=== PATIENT | male | born 1985 | race Caucasian/White ===

== ENCOUNTER 2017-09-02 12:40 | Inpatient (IN) | payer BC, OTHER ==
[~2017-09-02] VITALS: Ht 190.5 cm; Wt 78.0 kg
--- NOTE | 2017-09-03 00:26 | NUR ---
PRE-ADMISSION ASSESSMENT Pt was seen in intake office. Pt is currently intoxicated and not experiencing any s/s of withdrawal. Pt is disheveled and has unkempt appearance. Pt is slurring his words and can not maintain eye contact. Pt has a sterady gait. V/S: P:75, RR:16, SPO2:97, and BP:135/79. Pt is in acceptable condition for admittance to the unit.
[2017-09-03] MEDS ORDERED: MAGNESIUM HYDROXIDE 30 ML LIQUID UDC PO PRN (00:30)
[2017-09-03] MEDS ORDERED: ONDANSETRON 4 MG/2 ML VIAL IM PRN (00:30)
[2017-09-03] MEDS ORDERED: MAG HYDROX/AL HYDROX/SIMETH 30 ML LIQUID UDC PO PRN (00:30)
[2017-09-03] MEDS ORDERED: LOPERAMIDE HCL 2 MG CAPSULE PO PRN ×2 (00:30)
[2017-09-03] MEDS ORDERED: MIRALAX 17 GM POWD.PACK PO PRN (00:30)
[2017-09-03] MEDS ORDERED: ONDANSETRON ODT 4 MG TAB.RAPDIS SL PRN (00:30)
[2017-09-03] MEDS ORDERED: DICYCLOMINE HCL 20 MG TABLET PO PRN (00:30)
[2017-09-03] MEDS ORDERED: diphenhydrAMINE 50 MG CAPSULE PO PRN (00:30)
[2017-09-03 01:00] LABS: BASOPHILS % (AUTO) 0.4 % (0.0-2.0); EOSINOPHILS # (AUTO) 0.3 K/uL (0.0-0.7); EOSINOPHILS % (AUTO) 3.8 % (0.0-7.0); HEMATOCRIT 44.2 % (36.7-47.1); HEMOGLOBIN 15.2 g/dL (12.5-16.3); LYMPHOCYTES # (AUTO) 1.2 K/uL (20.0-40.0); LYMPHOCYTES % (AUTO) 13.6 % (20.5-51.5); MEAN CORPUSCULAR HEMOGLOBIN 32.8 uug (23.8-33.4); MEAN CORPUSCULAR HGB CONC 35 g/dL (32.5-36.3); MEAN CORPUSCULAR VOLUME 95.2 fL (73.0-96.2); MONOCYTES % (AUTO) 11.8 % (0.0-11.0); NEUTROPHILS % (AUTO) 70.4 % (38.5-71.5); PLATELET COUNT (AUTO) 274 K/uL (152-348); RED BLOOD CELL COUNT(AUTO) 4.64 MIL/uL (4.06-5.63); WHITE BLOOD COUNT (AUTO) 8.6 K/uL (3.6-10.2)
[2017-09-03 01:04] LABS: *AMPHETAMINE, URINE POSITIVE (NEGATIVE); *BARBITURATE, URINE NEGATIVE (NEGATIVE); *CANNABINOID, URINE POSITIVE (NEGATIVE); *COCCAINE, URINE POSITIVE (NEGATIVE); *OPIATE, URINE POSITIVE (NEGATIVE); *PHENCYCLIDINE SCREEN,URINE NEGATIVE (NEGATIVE)
[2017-09-03 01:08] LABS: ETHANOL < 3 MG/DL (0-0)
[2017-09-03 01:15] LABS: ALANINE AMINOTRANSFERASE 64 U/L (16-63); ALKALINE PHOSPHATASE 99 U/L (50-136); AMYLASE 34 U/L (25-115); ASPARTATE AMINOTRANSFERASE 102 U/L (15-37); BILIRUBIN,TOTAL 0.5 mg/dL (0.2-1.0); CARBON DIOXIDE 28 mmol/L (21-32); CHLORIDE 101 mmol/L (98-107); CREATININE 1.1 mg/dL (0.6-1.3); GLUCOSE 131 mg/dL (74-106); LIPASE 108 U/L (73-393); MAGNESIUM 2.1 mg/dL (1.8-2.4); POTASSIUM 4.1 mmol/L (3.5-5.1); TOTAL PROTEIN, SERUM 7.8 g/dL (6.4-8.2); UREA NITROGEN, BLOOD 23 mg/dL (7-18)
--- NOTE | 2017-09-03 01:22 | NUR ---
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 Pt is intoxicated and currently not experiencing any s/s of withdrawal. Pt has an unkempt and disheveled appearance. Pt has slurred speech, was lethargic, and avoidant eye contact. Pt is A/O to person, place, time, and purpose. Pt, however, was a poor historian. Pt states that withdrawal from these substance has typically included delirium, body aches, sweats, chills, and irritability. Pt denies any h/o withdrawal induced seizures. Pt states current substance use as follows: 1. Heroin: 4g daily for the past 2 wks. Pts last use was 2g on 09/02/17 @ 1630. Pt first began using when he was 27 y/o. 2. Cocaine: 1g daily for the past 5-6 wks. Pts last use was 1g on 09/02/17 @ 1630. Pt first began using when he was 29 y/o. 3. Methamphetamines: 1-2g daily for the past 5-6 wks. Pts last use was 2g on 08/31/17. Pt first began using when he was 29 y/o. Pt states they are seeking treatment today because I am sick and tired of doing things the same way. Its just not working any more. Pt has been admitted to several treatment facilities in the past. The most recent in March of 2017, was at [facility] in [place], which was a 30 day residential treatment facility. Pt states once he left treatment he stayed sober for a little while, but then went right back to using. Pt states that this time will be different because I have more experience and I am more open to treatment. Pt states he would like to continue treatment at a residential facility. Pt states that he has a good support system of friends including an AA sponsor. V/S: T:98.2, P:82, RR:18, SPO2:99, BP:129/81. Pts respirations are unlabored and even. Pts skin is intact, NKA, and he follows a regular diet @ homes. Pt was unable to answer clearly if he was a smoker. Pt doesnt have a PCP and he couldnt state if he had a psychiatrist. Pt did states that he was on Lamictal for depression. Pt states that in the past he had thoughts of suicide, but never a real plan. Pt denies any S/I and H/I currently. Pt was unable to be educated on plan of care and unit rules. Call light was within in reach. Pt will continue to be monitored and needs met.
[2017-09-03 01:48] LABS: THYROID STIMULATING HORMONE 0.896 mIU/mL (0.358-3.740)
[2017-09-03] MEDS ORDERED: LAMO200T2 GT (03:04)
[2017-09-03 05:00] VITALS: BP 115/80
--- NOTE | 2017-09-03 05:00 | NUR ---
COWS ASSESSMENT COWS 12. Pt is presenting w/ chills, body aches, and anxiety. Will continue to monitor pt.
[2017-09-03] MEDS: LORAZEPAM 1 MG TABLET PO PRN ×2 (05:21→15:25)
[2017-09-03] MEDS: BUPRENORPHINE HCL 2 MG TAB.SUBL SL PRN ×3 (05:21→13:42)
--- NOTE | 2017-09-03 05:21 | NUR ---
PRN SUBUTEX AND ATIVAN Subutex 4mg and Ativan 2gm given for anxiety, sweats, and chills. COWS 12. Will reassess in 1 hr.
--- NOTE | 2017-09-03 06:21 | NUR ---
PRN ATIVAN AND SUBUTEX REASSESSMENT Pt is in bed w/ his eyes closed. Pt's respirations are unlabored and even.
--- NOTE | 2017-09-03 07:30 | NUR ---
END OF SHIFT NOTE Endorsed pt to oncoming nurse. Pt is a 32 y/o male A/O to person, place, time, and purpose. Pt was admitted for medically supervised withdrawal from Heroin. Pt was intoxicated upon admission and was not experiencing any s/s of withdrawal. Pt presented w/ anxiety, body aches, and chills @ 0500. PRN Ativan 2MG and Subutex 4mg was given for COWS 12, noted effective. Pts fluid intake was 300ml and he voided 1 time. Pt slept for 3 hrs. Last COWS 12 @ 0500. Call light is within reach. Pt will continue to be monitored and needs met.
--- NOTE | 2017-09-03 07:45 | NUR ---
START OF SHIFT Rcvd endorse from ongoing nurse, client is in bed, sounds asleep, easy to arouse, RR 16, even, non-labored. Client's room noted with strong body odor smell, several snack bags open, and scattered on bedside table and floor. Primary nurse tidy up room. Last COWS 12, PRN Subutex 4mg SL and Ativan 2mg PO for anxiety. Client slept 3 hrs. [place] precautions rendered. [place] light within reach.
[2017-09-03 08:25] VITALS: BP 100/66
[2017-09-03] MEDS: MULTIVITAMINS,THERAPEUTIC TABLET PO SCH (09:00)
--- NOTE | 2017-09-03 09:35 | NUR ---
Client reports taking Lamictal 150mg PO for his bipolar depression, but has not take the medication for the past two days. Educate client on risk if he stop taking Lamictal without talking to his physician, additional education needed.
[2017-09-03] MEDS: METHOCARBAMOL 750 MG TABLET PO PRN (09:37)
--- NOTE | 2017-09-03 09:37 | NUR ---
COWS 17 & PRN's Client presents with anxiety, agitation, inability to stay still, restless, fidgety, loud speech, flight of ideas, inability to concentrate, tremors, nausea, abdominal spasms, generalized body aches, and myalgia on lower extremities. He appears disheveled, odorous, scattered scabs on face, lower extremities, client is continuously picking at skin, encourage client to not pick at skin, he said, "I'm not touching my skin." Encouragement needed. PRN Subutex 4mg SL, Bentyl 20mg PO and Robaxin 750mg PO administered. Call light within reach.
--- NOTE | 2017-09-03 10:07 | NUR ---
Reassess PRN Subutex 4mg, COWS 12, client reports not feeling any difference, he stated, "My whole body is aching, I am sweating, I feel hot and cold all the time, stomach cramps, nausea, just very achy." He continuos to present with anxiety, restlessness, and agitation. Client declines any PRN medication to help him manage withdrawal symptoms at this time. Call light within reach.
--- NOTE | 2017-09-03 10:37 | NUR ---
Reassess Bentyl 20mg and Robaxin 750mg, client is in bed, sounds asleep, easy to arouse, RR 16, even, non-labored. Call light within reach.
[2017-09-03 12:24] VITALS: BP 117/64
[2017-09-03] MEDS ORDERED: 5 DAY TAPER BUPRENORPHINE -SERENITY PROTOCOL SL PRN (13:30)
[2017-09-03] MEDS: ACETAMINOPHEN 325 MG TABLET PO PRN (13:42)
[2017-09-03] MEDS: IBUPROFEN 600 MG TABLET PO PRN (13:42)
[2017-09-03] MEDS: HYDROXYZINE PAMOATE 25 MG CAPSULE PO PRN (13:42)
--- NOTE | 2017-09-03 13:42 | NUR ---
COWS 19 & PRN's Client continues to present with anxiety, agitation, inability to stay still, restless, fidgety, flight of ideas, emotional volatility, inability to concentrate, tremors, nausea, abdominal spasms, generalized body aches, and myalgia on lower extremities /10 and headache. PRN Subutex 4mg SL, Vistaril 25mg PO for anxiety, Tylenol 650mg PO and Motrin 600mg PO administered. Call light within reach.
--- NOTE | 2017-09-03 13:44 | NUR ---
Nursing note while waiting for Subutex to dissolve, client started stretching and moving face from side to side, remote mortgage underwriter notified client that he has to sit and stay still until medication has been dissolved, client was reminiscing of his late best friend, he got up to show a tattoo that he got in memory of his friend and a Subutex pill dropped from his t-shirt, client quickly machine operator hop picker the pill and put it under his tongue and insisted that he has no idea what happened. Encourage client to sit still until medication has been administered. CN and MARKETING PROPOSAL COORDINATOR supervisor insecticide notified. Call light within reach.
--- NOTE | 2017-09-03 14:12 | NUR ---
Reassess PRN Subutex 4mg SL, COWS 12, client continues to presents with anxiety, agitation, generalized body aches, emotional volatility, inability to concentrate, tremors, nausea, and abdominal spasms. Call light within reach.
[2017-09-03] MEDS ORDERED: TRAZODONE 100 MG TABLET PO PRN (16:00)
[2017-09-03 16:36] VITALS: BP 125/65
[2017-09-03] MEDS: BUPRENORPHINE HCL 2 MG TAB.SUBL SL SCH ×2 (16:38→21:00)
[2017-09-03] MEDS ORDERED: LAMO100T2 PO (17:33)
--- NOTE | 2017-09-03 17:59 | NUR ---
OT Zyprexa Zydis 5 mg PO given: Patient noted with episodes of visual hallucinations. He reports seeing rodents in the room and seeing the doorknob coming to life. Patient was redirected back to reality. No evidence of rodents were noted in the room after staff checking. Notified Dr. Dunham with orders for OT Zyprexa Zydis 5 mg PO x 1 now. Orders noted and carried out. Zyprexa Zydis 5 mg PO was given for visual hallucinations m/b seeing the doorknob coming to life and seeing rodents in the room. Will monitor for effectiveness.
[2017-09-03] MEDS ORDERED: OLANZAPINE ZYDIS 5 MG TAB.RAPDIS PO ONE (18:00)
--- NOTE | 2017-09-03 18:59 | NUR ---
Reassess OT Zyprexa Zydis 5 mg, client is in bed with eyes closed, RR 16, even, non-labored. Call light within reach
--- NOTE | 2017-09-03 19:28 | NUR ---
END OF SHIFT Endorse client to incoming nurse, client is is room, laying in bed, eyes closed, RR 16, even, non-labored. Last COWS 19 @ 1600. PRN administered and noted per protocol. Adequate PO fluid intake. Consumes 50-75% of meals. call light within reach.
--- NOTE | 2017-09-03 19:29 | NUR ---
Start of shift note Received report from day shift nurse. Pt is a 32 yo male, A+Ox4, presenting to [facility] for Opiate/Meth/cocaine withdrawal. Pt noted to be fatigued and agitated. Pt has HX of Depression, delirium, and bipolar which will be monitored during shift. Pt is on 5 day Subutex taper, tolerated well. Respirations even and unlabored. Will continue to monitor.
[2017-09-03 20:20] VITALS: BP 110/64
--- NOTE | 2017-09-03 20:20 | NUR ---
COWS Assessment COWS: 7. Pt noted with fatigue, chills, enlarged pupils, stuffy nose, fine tremors, yawning and anxiety. Respirations even and unlabored. Will continue to monitor.
[2017-09-03] MEDS: LAMOTRIGINE 100 MG TABLET PO SCH (21:00)
--- NOTE | 2017-09-03 21:59 | NUR ---
Held medications 2100 dose of Lamictal and Subutex held for sleep. Respirations even and unlabored. Will continue to monitor.
[2017-09-04] MEDS ORDERED: LORAZEPAM 1 MG TABLET PO PRN (00:45)
--- NOTE | 2017-09-04 00:50 | NUR ---
V/S refused and COWS assessment deferred for sleep. Respirations even and unlabored. Will continue to monitor.
--- NOTE | 2017-09-04 04:54 | NUR ---
V/S refused and COWS assessment deferred for sleep. Respirations even and unlabored. Will continue to monitor.
--- NOTE | 2017-09-04 06:56 | NUR ---
End of shift note Pt was continuously noted with fatigue, agitation, and anxiety. Pt remained in room for majority of shift except to get food from kitchen. Pt remained cooperative and compliant with all aspects of treatment. Pt was not given any PRN medications during shift. Pts 2100 scheduled medications were held due to sleep. Pt is on 5 day Subutex taper, tolerated well. Pt slept for a total of 10 HRS. Last COWS: 7 @2000. Respirations even and unlabored. Will endorse to day shift nurse.
--- NOTE | 2017-09-04 07:30 | NUR ---
Start of Shift Pt. is 32 y/o male admitted for the medically managed withdrawal from Opiates, Cocaine, and Methamphetamine. Pt. was placed on a 5 day Subutex taper to manage withdrawal symptoms of which he is on his second day. Endorse from previous shift pt. continually presented with fatigue, agitation, and anxiety. Pt. slept during the majority of the previous shift, sleeping a total of 10 hours. Received pt. in room. Pt. awake sitting up in bed. Pt. states I feel like shit, I just want to go back to sleep. Pt. reports feeling chills and body aches. Pt. presents with fine hand tremors. Encouraged pt. to verbalize concerns and emotions. Last COWs [address] Will continue to monitor pt.s behavior for safety.
[2017-09-04 08:00] VITALS: BP 110/71
--- NOTE | 2017-09-04 08:00 | NUR ---
COW's Assessment COW's 10. Pt. in room laying on his bed with eyes open. Pt. presents with fine hand tremors, irritability, and restlessness. Pt. reports body aches, chills, anxiety and nasal congestion. Pt. compliant with medication regiment and taper medications. Pt. given Subutex at this time. Pt. offered PRN's but refused all stating "Subutex is enough, I don't want anything else." Will continue to monitor pt.'s behavior for safety.
[2017-09-04] MEDS: MULTIVITAMINS,THERAPEUTIC TABLET PO SCH (08:04)
[2017-09-04] MEDS: BUPRENORPHINE HCL 2 MG TAB.SUBL SL SCH ×3 (08:06→21:11)
[2017-09-04 08:12] LABS: BILIRUBIN,TOTAL 0.2 mg/dL (0.2-1.0); CREATININE 0.9 mg/dL (0.6-1.3); POTASSIUM 4.5 mmol/L (3.5-5.1); TOTAL PROTEIN, SERUM 6.5 g/dL (6.4-8.2)
[2017-09-04] MEDS ORDERED: TUBERCULIN,PURIF.PROT.DERIV. 5 TU/0.1 ML TEST ID ONE (09:00)
--- NOTE | 2017-09-04 12:00 | NUR ---
COW's Assessment COW's 9. Pt. sitting on the edge of his bed. Pt. still presents with fine hand tremors, irritability, and restlessness. Pt. reports body aches, chills, anxiety and nasal congestion. Pt. states "I just feel really irritable but I'm trying to control it." Pt. set to be given his next Subutex dose at 1500. Pt. still refusing PRN's. Will continue to monitor pt.'s behavior for safety.
[2017-09-04 12:13] VITALS: BP 110/59
[2017-09-04 15:07] LABS: HEPATITIS B SURFACE AG Negative (Negative)
[2017-09-04 16:00] VITALS: BP 130/79
--- NOTE | 2017-09-04 16:00 | NUR ---
COW's Assessment COW's 9. standing in his room watching television. Pt. still presents with fine hand tremors, irritability, and restlessness. Pt. reports body aches, chills, anxiety and nasal congestion. Pt. compliant with his taper. Will continue to monitor pt.'s behavior for safety.
--- NOTE | 2017-09-04 19:19 | NUR ---
End of Shift Pt. is 32 y/o male admitted for the medically managed withdrawal from Opiates, Cocaine, and Methamphetamine. Pt. was placed on a 5 day Subutex taper to manage withdrawal symptoms of which he is on his second day. Pt. compliant with his medication regiment. Pt. continually presented with fatigue, agitation, anxiety and continually reported body aches and chills. Pt. visible on the unit throughout shift and attended groups and activities. Encouraged pt. to verbalize concerns and emotions. Last COWs 9 at 1600. No PRNs given during shift. Safety measures in place. Will endorse pt.s behavior to oncoming shift.
--- NOTE | 2017-09-04 19:30 | NUR ---
Start of Shift Pt admitted 09/03/17 for medically managed withdrawal from Heroin, Cocaine and Methamphetamine salts on day 2 of a 5 day Subutex taper. Pt presenting with PPH of Depression, Bipolar, with Hx of withdrawal induce delirium. Pt in room, unshaven, with c/o open sores on torso and arms. CN consulted, determined to be "pick anna" pt to shower and use a moisturizer. Pt appears manic, euphoric, hyperactive with racing thoughts, reporting periods of visual hallucinations which pt refers to as "cognitive distortions". CN notified, Ativan 2mg PO to be given. Will monitor for duration of shift, promptly attending to all s/sx's w/d or distress.
[2017-09-04 20:00] VITALS: BP 130/64
--- NOTE | 2017-09-04 20:00 | NUR ---
COWS Score COWS of 12 at 2000 hours, aeb r/o sweats, restlessness, mild joint and B/A's, nasal congestion, hand tremors, yawning, irritability, intermittent piloerection, r/o "cognitive disturbances" which are described as periodic visual hallucinations.
[2017-09-04] MEDS: LAMOTRIGINE 100 MG TABLET PO SCH (21:10)
--- NOTE | 2017-09-04 21:11 | NUR ---
PRN Med Ativan 2mg PO given for anxiety, agitation, psychosis (visual H/A), Will continue to monitor, reassessing in 1 hour.
--- NOTE | 2017-09-04 22:11 | NUR ---
PRN Reassessment Ativan 2mg PO given 1 hour prior for anxiety/agitation, psychosis, r/o periodic visual hallucinations. At present pt reports decrease in anxiety/agitaion, no visaul disturbances present. Med effective. Will continue to monitor and promptly attend to all s/sx's distress or w/d.
[2017-09-05] VITALS: BP 115/72
--- NOTE | 2017-09-05 | NUR ---
Midnight Rounds VS's obtained, HR Bradycardic at 45, pattern seen of bradycardia during sleep. CN notified and aware. COWS deferred r/t pt somnalence. Will continue to monitor and promptly attend to all pt s/sx's w/d or distress
[2017-09-05 04:00] VITALS: BP 106/62
--- NOTE | 2017-09-05 04:00 | NUR ---
0400 Rounds VS's obtained, HR Bradycardic at 47, pattern seen of bradycardia during sleep. CN notified and aware. COWS deferred r/t pt somnalence. Will continue to monitor and promptly attend to all pt s/sx's w/d or distress
--- NOTE | 2017-09-05 07:04 | NUR ---
End of Shift Endorsement given to day nurse. Pt admitted 09/03/17 for medically managed withdrawal from Heroin, Cocaine and Methamphetamine salts on day 2 of a 5 day Subutex taper. Pt presenting with PPH of Depression, Bipolar, with Hx of withdrawal induce delirium. Pt appears manic, euphoric, hyperactive with racing thoughts. Pt received PRN Ativan 2mg due to c/o intermitant visual hallucinations, anxiety, agitation. Pt slept for 6 hours after being found praying by bed, on knees. 1855 mls intake with 5 voids and no BM's for shift. Pt bradycardic for midnight and 0400 rounds, with 45 and 47 being HR. Pt arousable both times with all other VS's stable. CN notified and aware.
[2017-09-05 08:00] VITALS: BP 120/69
[2017-09-05] MEDS: MULTIVITAMINS,THERAPEUTIC TABLET PO SCH (08:16)
--- NOTE | 2017-09-05 08:18 | NUR ---
START OF SHIFT: Received Pt A/O X 4. He presents with irritable mood and congruent affect. He reports some intermittent chills and sweats.Subutex taper in progress to manage s/s of w/d. COWS 12 He reports body aches,irritability and restlessness. Encouraged group attendance to improve coping skills and prevent relapse. Encouraged increased fluids to assist in facilitating detox process. Will continue to monitor and manage s/s of w/d.
[2017-09-05] MEDS ORDERED: BUPRENORPHINE HCL 2 MG TAB.SUBL SL SCH (09:00)
[2017-09-05] MEDS: ESCITALOPRAM OXALATE 10 MG TABLET PO SCH (11:07)
[2017-09-05 12:00] VITALS: BP 131/82
[2017-09-05] MEDS ORDERED: NEOMY/BACITRAC/POLYMI OINT 28.35 GM TUBE TOP SCH (12:15)
[2017-09-05] MEDS: BUPRENORPHINE HCL 2 MG TAB.SUBL SL SCH ×2 (15:23→20:08)
[2017-09-05 16:00] VITALS: BP 120/65
--- NOTE | 2017-09-05 18:57 | NUR ---
END OF SHIFT: Pt continues on Subutex taper to manage s/s of w/d which include intermittent chills and sweats. He also reports body aches and anxiety. Last COWS 8. He interacted with peers and attended groups.He is compliant with treatment plan. Will pass shift report to oncoming night nurse.
--- NOTE | 2017-09-05 19:30 | NUR ---
Start of Shift Endorsement received from day nurse. 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 Hx of several treatment centers, last in Mar 2017, with hx of delirium, on day 3 of a 5 day Subutex taper. Pt presents has sad, depressed, anxious, claims he woke up from a nap and doesn't feel right. Pt says "wall seems to be doing something funny". Pt to be medicated with Seroquel, Subutex, Lamictal, monitored and reevaluated in 1 hour. Will continue to monitor for any s/sx's distress or w/d and promptly attend.
[2017-09-05 20:00] VITALS: BP 134/92
--- NOTE | 2017-09-05 20:00 | NUR ---
2000 Rounds VS's stable, COWS 11, aeb fine tremors, diaphoresis, anxiety and agitation, visual disturbances/hallucinations
[2017-09-05] MEDS: LAMOTRIGINE 100 MG TABLET PO SCH (20:07)
[2017-09-05] MEDS: QUETIAPINE FUMARATE 25 MG TABLET PO PRN (20:08)
--- NOTE | 2017-09-05 20:08 | NUR ---
PRN Med Seroquel 25mg PO given with scheduled Subutex and Lamictal for anxiety, agitation, and psychosis (visual disturbances). Will continue to monitor and reassess in 1 hour
[2017-09-05] MEDS: NEOMY/BACITRAC/POLYMI OINT 28.35 GM TUBE TOP SCH (21:00)
--- NOTE | 2017-09-05 21:08 | NUR ---
PRN Reassessment Seroquel 25mg PO given 1 hour prior with scheduled Lamictal and Subutex for anxiety, agitation and psychosis. At present, pt is reporting feeling "much better". Med effective.
[2017-09-06] VITALS: BP 110/61
--- NOTE | 2017-09-06 | NUR ---
Midnight Rounds VS's obtained and stable, COWS deferred r/t pt somnalance. Will continue to monitor and promptly attend to all s/sx's of w/d or distress.
[2017-09-06 04:00] VITALS: BP 114/60
--- NOTE | 2017-09-06 04:00 | NUR ---
0400 Rounds VS's obtained and stable, COWS deferred r/t pt somnalance. Will continue to monitor and promptly attend to all s/sx's of w/d or distress.
--- NOTE | 2017-09-06 07:37 | NUR ---
End of Shift Endorsement given to day nurse. 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 Hx of several treatment centers, last in Mar 2017, with hx of delirium, starting day 4 of a 5 day Subutex taper. Pt with flat affect, sad and depressed in eveing with visual BLANCAS. Pt responded to Ps[facility] meds with Seroquel in evening, visual disturbances diminished and pt normalized. Pt interactive after with appetite. Seroquel was sole PRN, pt first requesting, then refusing Robaxin and Trazodone, and refusing ABX ointment, and pt sleeping for 9 hours with 1.5 L intake, and 4 voids. Last CIWA 11 at 2000 hours.
--- NOTE | 2017-09-06 07:50 | NUR ---
START OF SHIFT Pt is a 32 y/o M admitted on 09/03/17 for medically supervised opiate, meth, and cocaine withdrawal. Pt is placed on a 5 day subutex taper, today being the 4th day and tolerating well. Pt has a flat affect, and a depressive mood, poor eye contact. Pt presents anxiety, restlessness, generalized body aches and hot flashes. Pt had visual disturbances last night and was given seroquel per night nurse report. Encourage pt to verbalized feelings and eduated pt about s/s to report. Bed is on the lowest position with side rails x2 up and call light within reach. Safety measures in place. Will give endorsement to machine technician nurse.
[2017-09-06 08:00] VITALS: BP 99/65
--- NOTE | 2017-09-06 08:20 | NUR ---
COWS ASSESSMENT 15 Received pt A/Ox4, respirations even and unlabored. Pt has a flat affect, a depressive mood, and poor eye contact. Pt presents pupils larger than normal, anxiety, agitation, sweating, restlessness, piloerection of the skin, runny nose and congestion, yawning, stomach cramps, generalized body aches, tremors, dysphoria, anhedonia and hot flashes. Encourage pt to verbalized feelings and eduated pt about s/s to report. Scheduled meds given. Encouraged pt to use non-pharmalogical methods for symptoms. Will continue to monitor.
[2017-09-06] MEDS: MULTIVITAMINS,THERAPEUTIC TABLET PO SCH (08:42)
[2017-09-06] MEDS: ESCITALOPRAM OXALATE 10 MG TABLET PO SCH (08:42)
[2017-09-06] MEDS: BUPRENORPHINE HCL 2 MG TAB.SUBL SL SCH ×3 (08:44→21:20)
[2017-09-06] MEDS: NEOMY/BACITRAC/POLYMI OINT 28.35 GM TUBE TOP SCH ×2 (08:44→21:21)
[2017-09-06 12:10] VITALS: BP 136/69
--- NOTE | 2017-09-06 12:30 | NUR ---
COWS ASSESSMENT 15 Pt exhibits a labile mood, increased emotional amplitude, and a depressive mood. pt continues to present pupils larger than normal, anxiety, agitation, sweating, restlessness, piloerection of the skin, runny nose and congestion, yawning, stomach cramps, generalized body aches, tremors, dysphoria, anhedonia and hot flashes. Encourage pt to verbalized feelings and educated pt about s/s to report. Refused prn comfort meds at this time. Encouraged pt to use non-pharmalogical methods for comfort measures. Will continue to monitor.
--- NOTE | 2017-09-06 14:00 | NUR ---
PRN Seroquel 25 mg po prn and robaxin 750 mg po prn given for visual disturbances, agitation, muscle spasms and muscle aches. Pt reports he was seeing his dog in his peripheral vision but when he turned to look, the dog was not there. Pt also reported the [place] would start to move and wave. Will closely monitor reassess.
[2017-09-06] MEDS: METHOCARBAMOL 750 MG TABLET PO PRN ×2 (14:08→22:10)
[2017-09-06] MEDS: QUETIAPINE FUMARATE 25 MG TABLET PO PRN ×2 (14:08→21:19)
--- NOTE | 2017-09-06 15:00 | NUR ---
REASSESSMENT Pt is laying in bed sleeping. Respirations even and unlabored. Will continue to monitor.
--- NOTE | 2017-09-06 16:00 | NUR ---
COWS ASSESSMENT 16 Pt reported to have visual disturbances - seeing his dog in his peripherals and the [place] beginning to move. Pt continues to present pupils larger than normal, anxiety, agitation, sweating, restlessness, piloerection of the skin, runny nose and congestion, yawning, stomach cramps, generalized body aches, tremors, dysphoria, anhedonia and hot flashes. Encourage pt to verbalized feelings and educated pt about s/s to report. Encouraged pt to use non-pharmalogical methods for comfort measures. Will continue to monitor.
[2017-09-06 16:48] VITALS: BP 102/63
--- NOTE | 2017-09-06 18:39 | NUR ---
END OF SHIFT Pt has reported having visual disturbances during shift; such as seeing his dog in his peripherals and the wall moving. Pt has been given seroquel and robaxin prns. Staff had reported pt has had a small argument with another patient in the patio but has been quickly resolved. Last COWS 16 @1600. Pt ate 0/75/75% of meals. Fluid intake 2355ml, voided x4, bm 0. Safety measures in place. Will give endorsement to hotel night auditor nurse.
--- NOTE | 2017-09-06 19:30 | NUR ---
Start of Shift Endorsement received from day nurse. 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 Hx of several treatment centers, last in Mar 2017, with hx of delirium. Pt claims to be depressed, major aspect of bipolar dx, movement hyperactive. Affect flat with racing thoughts. Pt appears older than stated age, nutrition inadequate. Eye contact poor, pt appears worried and anxious, agitated and irritable. C/o new "pick anna", bleeding, examined and treated with abx ointment with band aids. Will continue to monitor for shift, endorsing in am, and attending to all s/sx's w/d or distress promptly.
[2017-09-06 20:00] VITALS: BP 105/78
--- NOTE | 2017-09-06 20:00 | NUR ---
Evening Rounds VS's obtained, stable. COWS 15, aeb diaphoresis, fine tremors, anxiety and restlessness, yawning, depression, anhedonia, arthralgias and generalized discomfort, difficulty concentrating and sleeping, and visual hallucinations.
[2017-09-06] MEDS: HYDROXYZINE PAMOATE 25 MG CAPSULE PO PRN (21:19)
--- NOTE | 2017-09-06 21:19 | NUR ---
PRN Meds Seroquel 25mg PO for psychosis, and Vistaril for anxiety and agitation given. Will continue to monitor and promptly attend to all s/sx's of distress and w/d, reassessing in 1 hour
[2017-09-06] MEDS: LAMOTRIGINE 100 MG TABLET PO SCH (21:20)
--- NOTE | 2017-09-06 22:10 | NUR ---
PRN Med Robaxin 750mg PO given for joint and B/A's, 06/17, generalized. Will continue to monitor, reassessing in 1 hour.
--- NOTE | 2017-09-06 22:19 | NUR ---
PRN Reassessment Seroquel 25mg PO for psychosis, and Vistaril for anxiety and agitation given 1 hour prior. At present pt reports decrease in anxiety, no further visual disturbances noted. Meds effective.
--- NOTE | 2017-09-06 23:10 | NUR ---
PRN Reassessment Robaxin 750mg PO given for joint and B/A's, 5/10, generalized, 1 hour prior. At present, Pt is sleeping, RR 14, even and nonlabored. Med effective.
[2017-09-07] VITALS: BP 117/73
--- NOTE | 2017-09-07 | NUR ---
Midnight Rounds VS's obtained, stable with HR 50. COWS deferred r/t pt somnalance. Will continue to monitor, promptly attending to all s/sx's w/d or distress.
[2017-09-07 04:00] VITALS: BP 107/56
--- NOTE | 2017-09-07 04:00 | NUR ---
0400 Rounds VS's obtained, stable with HR 51. COWS deferred r/t pt somnalance. Will continue to monitor, promptly attending to all s/sx's w/d or distress.
--- NOTE | 2017-09-07 06:30 | NUR ---
COWS Score COWS 16, aeb anxiety, agitation, depression, fine tremors, yawning, nasal congestion, restless legs and arthralgias, fatigue/malaise, anhedonia, and myalgias.
[2017-09-07] MEDS: HYDROXYZINE PAMOATE 25 MG CAPSULE PO PRN ×3 (06:39→17:59)
[2017-09-07] MEDS: QUETIAPINE FUMARATE 25 MG TABLET PO PRN ×3 (06:39→21:10)
[2017-09-07] MEDS: METHOCARBAMOL 750 MG TABLET PO PRN ×3 (06:39→21:10)
--- NOTE | 2017-09-07 06:39 | NUR ---
PRN Meds Robaxin 750mg PO for generalized B/A's 10, Seroquel 25mg PO for agitation, and Vistaril 25mg PO for anxiety given. Will continue to monitor and reassess in 1 hour.
--- NOTE | 2017-09-07 07:19 | NUR ---
End of Shift Endorsement given to day nurse. 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 Hx of several treatment centers, last in Mar 2017, with hx of delirium, depression and bipolar d/o. Pt remains depressed, claims bipolar is composed almost entirely of depressive state, anxious over insurance and plans for aftercare, worried with poor eye contact. Hyperactive with racing thoughts. PRN's for shift were Seroquel x 2 and Vistaril x 2 for visual disturbances and anxiety/agitation/restlessness, and Robaxin x 2 for generalized B/A's and restless legs. Pt slept for 7 hours, with 1212 mls intake and 3 voids.
--- NOTE | 2017-09-07 07:35 | NUR ---
START OF SHIFT Pt is a 32 y/o M admitted on 09/03/17 for medically supervised opiate, meth, and cocaine withdrawal. Today is the last day of a 5 day subutex taper, and pt is tolerating well. Pt has a flat affect, and a depressive and anxious mood, pt states he is worried about aftercare. Pt reports waking up at 0600 and could not go back to sleep. Pt presents intermittent hot/cold flashes, anxiety, restlessness, generalized body aches. Per night nurse, pt continued to have visual disturbances; seroquel prn was given. Last COWS 16, and pt was given seroquel, vistaril, and robaxin PRNs. Encourage pt to verbalized feelings and educated pt on today's plan of care and med regimen. Bed is on the lowest position with side rails x2 up and call light within reach. Safety measures in place. Will give endorsement to slot shift supervisor nurse.
[2017-09-07 08:00] VITALS: BP 115/75
--- NOTE | 2017-09-07 08:00 | NUR ---
COWS ASSESSMENT 16 Pt is standing up in front of his room, stating he feels anxious and wanting to go to the patio. Pt has a depressive and anxious mood. Pt states he is worried about aftercare. Pt reports waking up at 0600 and could not go back to sleep. Pt presents intermittent hot/cold flashes, anxiety, restlessness, generalized body aches. Pt C/O restless legs and achiness in the legs. Will give scheduled meds, ibuprofen and tylenol prns.
[2017-09-07] MEDS: IBUPROFEN 600 MG TABLET PO PRN (08:09)
[2017-09-07] MEDS: ACETAMINOPHEN 325 MG TABLET PO PRN (08:09)
[2017-09-07] MEDS: MULTIVITAMINS,THERAPEUTIC TABLET PO SCH (08:09)
[2017-09-07] MEDS: ESCITALOPRAM OXALATE 10 MG TABLET PO SCH (08:09)
--- NOTE | 2017-09-07 08:09 | NUR ---
PRN Ibuprofen 600 mg po and Tylenol 650 mg po PRNs given for leg pain, restless legs, and generalized body aches; pt is seen continually stretching and moving around restlessly. Will monitor and reassess.
[2017-09-07] MEDS: NEOMY/BACITRAC/POLYMI OINT 28.35 GM TUBE TOP SCH ×2 (08:10→21:10)
[2017-09-07] MEDS ORDERED: BUPRENORPHINE HCL 2 MG TAB.SUBL SL SCH (09:00)
--- NOTE | 2017-09-07 09:09 | NUR ---
REASSESSMENT Pt reports meds were effective in decreasing the intensity of leg pain. Educated and encouraged pt to use non-pharmalogical intervention such as stretching and distraction methods.
--- NOTE | 2017-09-07 12:30 | NUR ---
COWS ASSESSMENT 16 Pt continues to has a depressive and anxious mood. Pt c/o increased anxiety, agitation, hot/cold flashes, restlessness, generalized body aches, restless legs and achy legs. Will give scheduled meds and prn vistaril. Addendum: 09/07/17 at 1309 by MJ DEVLIN RN COWS 15 Addendum: 09/07/17 at 1743 by MJ DEVLIN RN BP 146/88.
[2017-09-07] MEDS: LACTOBACILLUS RHAMNOSUS GG 1 EACH CAPSULE PO SCH (12:39)
--- NOTE | 2017-09-07 12:39 | NUR ---
PRN Vistaril 25 mg po prn given for increased anxiety. Will monitor and reassess.
[2017-09-07 12:51] VITALS: BP 117/60
--- NOTE | 2017-09-07 13:39 | NUR ---
REASSESSMENT Pt is in req room with other patients, pt appears calm and less anxious. Will continue to monitor.
--- NOTE | 2017-09-07 15:06 | NUR ---
PRN Seroquel 25 mg po, clonidine 0.1 mg po, and robaxin 750 mg po PRNs given; Pt returned from the discharge office pacing with agitation, diaphoresis, anxiety, myalgia. Will monitor and reassess.
[2017-09-07] MEDS: CLONIDINE HCL 0.1 MG TABLET PO PRN ×2 (15:11→21:10)
[2017-09-07 16:00] VITALS: BP 120/71
--- NOTE | 2017-09-07 16:06 | NUR ---
REASSESSMENT Pt appears less agitated and anxious, less restless. Pt is in room folding clothes and putting them away. Will continue to monitor.
--- NOTE | 2017-09-07 18:00 | NUR ---
PRN Vistaril 25 mg po prn given; pt is exhibiting increased anxiety, agitation, irritation, aggravation, hyperactivity, restlessness. Will monitor and reassess.
--- NOTE | 2017-09-07 18:32 | NUR ---
END OF SHIFT Pt has completed a 5 day subutex taper today and is scheduled to be discharged tomorrow. Last COWS 11. Pt has exhibited increased anxiety, agitation, aggravation and higher emotional amplitude due to anticipating discharge and aftercare issues. Pt has not attended groups today. Pt has been given ibuprofen, tylenol, vistaril, robaxin, seroquel, and clonidine PRNs during shift. Pt has been compliant with tx plan and med regimen. Safety measures in place.
--- NOTE | 2017-09-07 19:01 | NUR ---
REASSESSMENT Pt is with other patients in the req room; appears more relaxed and less agitated. Will continue monitor until discharge.
--- NOTE | 2017-09-07 19:15 | NUR ---
Start of Shift Note: Patient is a 32 y.o male admitted on 09/03/17 for medically supervised withdrawal from Heroin use. Patient is alert & oriented x4. He appears with an anxious/irritable mood. He completed his 5-day Subutex taper and is scheduled to be discharge tomorrow. Patient presented with mylagia, anxiety, agitation,restless legs, sweating & chills. No N/V/D noted. Last COWS 11. Pt received PRN Motrin, Tylenol, Vistaril x2, Robaxin, Seroquel & Clonidine. Pt educated of current plan of care for the night and medication regimen. Pt verbalized understanding. Safety measures in place. Will continue to monitor patient.
[2017-09-07 20:00] VITALS: BP 118/68
[2017-09-07] MEDS ORDERED: METH-406 PO (21:01)
[2017-09-07] MEDS ORDERED: LAMO100T2 PO (21:01)
[2017-09-07] MEDS ORDERED: QUET25TA PO (21:01)
[2017-09-07] MEDS ORDERED: LACT1CAP57 PO (21:01)
[2017-09-07] MEDS ORDERED: TRAZ-214 PO (21:01)
[2017-09-07] MEDS ORDERED: CLON0.1T14 PO (21:01)
[2017-09-07] MEDS ORDERED: IBUP-1955 PO (21:01)
[2017-09-07] MEDS ORDERED: ESCI10TA PO (21:01)
[2017-09-07] MEDS ORDERED: HYDR-3895 PO (21:01)
[2017-09-07] MEDS: LAMOTRIGINE 100 MG TABLET PO SCH (21:10)
--- NOTE | 2017-09-07 21:10 | NUR ---
PRN Clonidine/Seroquel/Robaxin Patient noted with anxiety, agitation, restlessness, sweating, chills & myalgia. COWS 8 at this time. B/P 118/68. Non-pharmacological intervention provided but not effective. PRN Clonidine, Seroquel & Robaxin administered as ordered. Will monitor for effectiveness of medication.
--- NOTE | 2017-09-07 22:10 | NUR ---
PRN Reassessment Patient verbalized decreased in anxiety, sweating & chills after medication administration. Pt noted laying in bed and appears more calm & comfortable. He verbalized relief from body aches at this time. Will continue ot monitor patient.
--- NOTE | 2017-09-07 22:47 | NUR ---
MD Communication/PRN Trazodone Patient complained that he can't sleep d/t restless legs. MD notified and ordered a one time order of Gabapentin 400mg. Orders noted and carried out. Pt also given Trazodone 100mg for sleep. Safety measures in place. Will continue to monitor for effectiveness of medication.
[2017-09-07] MEDS ORDERED: GABAPENTIN 400 MG CAPSULE PO ONE (23:00)
--- NOTE | 2017-09-07 23:47 | NUR ---
PRN Reassessment Patient asleep in bed at this time and appears comfortable. No facial grimacing noted. safety measures in place. Will continue to monitor patient.
--- NOTE | 2017-09-08 | NUR ---
Vitals/COWS deferred Patient asleep in bed and appears comfortable. NO facial grimacing noted. Respiration even & unlabored. Unable to assess COWS score at this time and will reassess if pt is awake. Safety measures in place. Will continue to monitor patient.
--- NOTE | 2017-09-08 04:00 | NUR ---
Vitals/COWS deferred Patient in bed with eyes close. NO facial grimacing noted. Respiration even & unlabored. Unable to assess COWS score at this time and will reassess if pt is awake. Safety measures in place. Will continue to monitor patient.
--- NOTE | 2017-09-08 07:24 | NUR ---
End of Shift Note: Continue to closely monitor patient. Patient remains alert & oriented x4. He presented with anxiety, agitation, myalgia, restless legs, sweating, chills, & insomnia. He completed his 5-day Subutex taper and is sheduled to be discharge today. Last COWS is 8. He received PRN CLonidine, Seroquel, Robaxin & Trazodone. He also received a one time order of Gabapentin last night for restless legs. All medication given were effective. Pt remained stable and vitals noted WNL. Pt was able to sleep for a total of 7 hours. Fluid intake 1796 ml. He Voided 6x with no bowel movement. All need were attended & met. Safety measures in place. Will dicuss all pertinent information to incoming nurse.
--- NOTE | 2017-09-08 07:47 | NUR ---
START OF SHIFT Pt is a 32 y/o M admitted on 09/03/17 for medically supervised opiate, meth, and cocaine withdrawal. Completed a 5 day subutex taper yesterday, and pt tolerated well. Pt has a flat affect, and an anxious mood, pt is worried about what treatment center he will be going to. Pt presents anxiety, agitation, irritation, increased emotional amplitude, intermittent hot/cold flashes, anxiety, restlessness, generalized body aches. Last COWS 8, and pt was given seroquel, clonidine, trazodone and robaxin PRNs and gabapentin 100 mg x1. Pt is scheduled to be discharged today. Bed is on the lowest position with side rails x2 up and call light within reach. Safety measures in place. Will give endorsement to commercial project manager nurse.
--- NOTE | 2017-09-08 08:00 | NUR ---
WA ASSESSMENT 8 pt is worried about what treatment center he will be going to. Pt has an anxious and depressive mood, presents anxiety, agitation, irritation, increased emotional amplitude, intermittent hot/cold flashes, anxiety, restlessness, c/o joint aches 5/10 pain. Vistaril, robaxin, and seroquel prns will be given.
[2017-09-08 08:17] VITALS: BP 114/60
[2017-09-08] MEDS: MULTIVITAMINS,THERAPEUTIC TABLET PO SCH (08:19)
[2017-09-08] MEDS: QUETIAPINE FUMARATE 25 MG TABLET PO PRN ×3 (08:19→23:26)
[2017-09-08] MEDS: ESCITALOPRAM OXALATE 10 MG TABLET PO SCH (08:19)
[2017-09-08] MEDS: LACTOBACILLUS RHAMNOSUS GG 1 EACH CAPSULE PO SCH (08:19)
[2017-09-08] MEDS: METHOCARBAMOL 750 MG TABLET PO PRN ×2 (08:19→18:47)
[2017-09-08] MEDS: HYDROXYZINE PAMOATE 25 MG CAPSULE PO PRN ×2 (08:19→18:47)
--- NOTE | 2017-09-08 08:19 | NUR ---
PRN Ibuprofen, Seroquel 25 mg, vistaril 25 mg, and robaxin 750 mg PRNs given; pt C/O being highly anxious, aigitated, aggravated, restless, and of having 5/10 bilatereal leg pain. Will continue to monitor.
[2017-09-08] MEDS: NEOMY/BACITRAC/POLYMI OINT 28.35 GM TUBE TOP SCH ×2 (08:25→22:00)
--- NOTE | 2017-09-08 09:19 | NUR ---
REASSESSMENT Pt reports meds have been effective in decreasing the intensity of his symptoms; pt appears more calm and less agitated. Safety measures in place.
[2017-09-08 12:00] VITALS: BP 105/65
--- NOTE | 2017-09-08 12:30 | NUR ---
CIWA ASSESSMENT 8 Pt continues to present restlessness, anxiety, agitation, irritation, emotional amplitude, intermittent hot/cold flashes, c/o joint aches 7/10 pain. Clonidine, ibuprofen, tylenol prns will be given.
[2017-09-08] MEDS: IBUPROFEN 600 MG TABLET PO PRN (12:59)
[2017-09-08] MEDS: ACETAMINOPHEN 325 MG TABLET PO PRN (12:59)
[2017-09-08] MEDS: CLONIDINE HCL 0.1 MG TABLET PO PRN ×2 (13:02→23:26)
--- NOTE | 2017-09-08 13:02 | NUR ---
PRN Clonidine 0.1 mg, ibuprofen 600 mg, and tylenol 650 mg po prns given for hot/cold flashes, sweating, anxiety, and bilateral leg pain 08/17. Will continue to monitor and reassess.
--- NOTE | 2017-09-08 14:02 | NUR ---
REASSESSMENT Pt reports meds have been effective for bilateral leg pain and restless legs.
--- NOTE | 2017-09-08 16:01 | NUR ---
CIWA ASSESSMENT 8 Pt has c/o bilateral leg pain and joint pain, nerve pain, anxiety, agitation, restlessness, irritation, hot/cold flashes. Pt has given clonidine, ibuprofen, tylenol prns and refuses meds at this time. Encouraged pt to use non-pharmalogical methods.
[2017-09-08 16:30] VITALS: BP 102/57
--- NOTE | 2017-09-08 18:47 | NUR ---
PRN Vistaril 25 mg, Seroquel 25 mg, robaxin 750 mg po prn given for generalized body aches, increased agitation, and anxiety. WIll endorse to night coordinator nurse.
--- NOTE | 2017-09-08 19:15 | NUR ---
END OF SHIFT Pt has been fidgety and moving around restlessly throughout shift. Pt has not been attending groups today. Pt has completed a 5 day subutex taper on 09/07/17 and is scheduled to be discharged @0200 09/09/17 to [facility]. Pt continues to have agitation, anxiety, aggravation, c/o BLE and joint pain. Ibuprofen x2, seroquelx2, vistarilx2, robaxinx2, clonidine, tylenol PRNs given. Last COWS 8 @1600. . Safety measures in place.
--- NOTE | 2017-09-08 19:30 | NUR ---
Start of Shift Patient Received. patient is noted in the activities room participating in a group meeting. Per endorsement, patient is set for discharge 09/09/17 at 0200 [place] located in [place]. Patient as completed a 5 day Subutex taper and as tolerated taper well. Patient refused PPD administration. He received PRN Robaxin x2, Vistaril x2, Seroquel x2 , Ibuprofen x2, Clonidine, and Tylenol with medications noted to be effective. Last noted COWS 8. All needs attended to promptly. Will continue plan of care as ordered.
[2017-09-08 20:15] VITALS: BP 110/61
[2017-09-08] MEDS: LAMOTRIGINE 100 MG TABLET PO SCH (22:00)
[2017-09-08 23:24] VITALS: BP 121/74
[2017-09-08] MEDS ORDERED: METHOCARBAMOL 750 MG TABLET PO ONE (23:30)
--- NOTE | 2017-09-08 23:30 | NUR ---
PRN Medication Administration Patient is noted verbalizing increased restless legs, agitation, anxiety, and sweats. Patient states "the only thing that really helps is the Robaxin." Relayed to CN who contacted MD with one time dose of Robaxin. PRN Robaxin, Seroquel, and Clonidine administered. Will continue to monitor.
[2017-09-09 00:25] VITALS: BP 101/51
--- NOTE | 2017-09-09 00:25 | NUR ---
PRN Medication Reassessment Patient is able to verbalize "the medications really helped." PRN Clonidine, Robaxin, and Seroquel noted to be effective. Will continue to monitor.
--- NOTE | 2017-09-09 02:10 | NUR ---
Discharge Patient is in stable condition, vitals noted WNL, skin is noted intact, denies suicidal or homicidal ideations, all discharge paperwork signed and dated. Patient was discharged from [facility] 09/09/2017 at 0208. Patient received all of his belongings including prescriptions. made a aware.
== END 2017-09-09 02:08 | disposition other institution (70) | DRG 895 ==
LOC: SRC 09-03 00:03
PROVIDERS: ADMIT Family Medicine Addiction Medicine; ATTEND Family Medicine Addiction Medicine
PROC: HZ31ZZZ Individual Counseling for Substance Abuse Treatment, Behavioral (ICD-10-PCS; principal; 2017-09-03)
PROC: HZ2ZZZZ Detoxification Services for Substance Abuse Treatment (ICD-10-PCS; principal; 2017-09-03)
PROC: HZ41ZZZ Group Counseling for Substance Abuse Treatment, Behavioral (ICD-10-PCS; 2017-09-04)
DX: F11.23 Opioid dependence with withdrawal (principal); F14.229 Cocaine dependence with intoxication, unspecified; F15.23 Other stimulant dependence with withdrawal; Z81.1 Family history of alcohol abuse and dependence; R74.0 Nonspecific elevation of levels of transaminase and lactic acid dehydrogenase [LDH]; F41.9 Anxiety disorder, unspecified; F17.200 Nicotine dependence, unspecified, uncomplicated; F31.9 Bipolar disorder, unspecified
CPT/HCPCS: 36415; 70030-TC; 80307; 80324; 80349; 80353; 80361; 83690; 83735; 84443; 85025; 86592; 86705; 86803; 87340; 87806; A4663; G0480